=== PATIENT | female | born 1980 | race Hispanic/Latino ===

== ENCOUNTER 2017-12-01 12:36 | Outpatient (CLI) | payer BC | END 2017-12-01 12:37 | disposition home or self-care (01) | LOC: BICMAMMO 12:36 | PROVIDERS: ATTEND Family Medicine | DX: N63.20 Unspecified lump in the left breast, unspecified quadrant (principal) | CPT/HCPCS: 77066; G0279 ==

== ENCOUNTER 2022-06-13 15:19 | Outpatient (CLI) | payer BC | END 2022-06-13 15:20 | disposition home or self-care (01) | LOC: SCSRAD 15:19 | PROVIDERS: ATTEND Family Medicine | DX: R05.3 Chronic cough (principal) | CPT/HCPCS: 71046 ==

== ENCOUNTER 2023-11-03 10:33 | Outpatient (CLI) | payer BC | END 2023-11-03 10:34 | disposition home or self-care (01) | LOC: SCSRAD 10:33 | PROVIDERS: ATTEND Nurse Practitioner Family | DX: R05.1 Acute cough (principal) | CPT/HCPCS: 71046 ==